=== PATIENT | female | born 1980 | race Caucasian/White ===

== ENCOUNTER 2016-06-04 12:05 | Emergency (ER) | payer BC ==
[2016-06-04] MEDS ORDERED: diphenhydrAMINE 50 MG/ML 1 ML VIAL IVP STA (13:12)
[2016-06-04] MEDS ORDERED: METOCLOPRAMIDE 5 MG/ML 2 ML VIAL IVP STA (13:12)
[2016-06-04] MEDS ORDERED: SODIUM CHLORIDE 0.9% 1,000 ML IV ONE (13:12)
[2016-06-04] MEDS ORDERED: ACETAMINOPHEN IV (For NPO) 1,000 MG in EMPTY BAG 1 BAG IVPB STA (13:13)
--- NOTE | 2016-06-04 13:16 | ED ---
Headache HPI - General Chief Complaint: Headache Stated Complaint: Severe Headache/low grade fever Time Seen by Provider: 06/04/16 13:02 Source: RN notes reviewed Mode of arrival: ambulatory Limitations: no limitations - History of Present Illness Initial Comments: She is a 35-year-old female presenting to the with chief complaint of the sudden onset of a headache this morning. Patient reports that when the headache occurred she was unable to ambulate and her headache was so severe she felt nauseated. Patient reports that she was able to take Motrin after her son was able to walk and get it to her. Patient reports that she's never had a history of migraines or headaches such as this. She also states that for the past 10 days she's been having a low-grade fever. She is reported that she's also had a cough and was given a prescription for azithromycin for the past 5 days. Patient reports that despite taking the antibiotic she is continued to have somewhat of a fever today. She denies any specific symptoms besides the headache and the fever including dysuria or hematuria, abdominal pain, and vomiting, diarrhea constipation. She reports that she has no significant past medical history however she does have a family history of stroke. She reports that her younger sister had a stroke at the age of 34. Patient denies any recent chills, shortness of breath, chest pain, back pain, abdominal pain, vomiting, numbness or tingling, dysuria or hematuria, constipation or diarrhea, headaches or visual changes, or any other current symptoms. - Related Data Home Medications Medication Instructions Recorded Confirmed Ibuprofen [Motrin] 800 mg PO Q6H PRN 06/04/16 06/04/16 methylPREDNISolone Dose Pack See Taper PO DAILY 06/04/16 06/04/16 [Medrol Dose Pack] Allergies Allergy/AdvReac Type Severity Reaction Status Date / Time No Known Allergies Allergy Verified 06/04/16 12:54 Review of Systems ROS Statement: Those systems with pertinent positive or pertinent negative responses have been documented in the HPI. ROS Other: All systems not noted in ROS Statement are negative. Past Medical History Past Medical History: No Reported History History of Any Multi-Drug Resistant Organisms: None Reported Past Surgical History: Appendectomy Additional Past Surgical History / Comment(s): lap Past Psychological History: No Psychological Hx Reported Smoking Status: Never smoker Past Alcohol Use History: Occasional Past Drug Use History: None Reported General Exam - General Exam Comments Initial Comments: Patient is a 35-year-old female. She is alert and oriented and doesn't appear to be in any acute distress at this time. Limitations: no limitations General appearance: alert, in no apparent distress Head exam: Present: atraumatic, normocephalic, normal inspection Eye exam: Present: normal appearance, PERRL, EOMI. Absent: scleral icterus, conjunctival injection, periorbital swelling ENT exam: Present: normal exam, mucous membranes moist Neck exam: Present: normal inspection, full ROM, other (Negative Kernig's and Brudzinski sign.). Absent: tenderness, meningismus, lymphadenopathy Respiratory exam: Present: normal lung sounds bilaterally. Absent: respiratory distress, wheezes, rales, rhonchi, stridor Cardiovascular Exam: Present: regular rate, normal rhythm, normal heart sounds. Absent: systolic murmur, diastolic murmur, rubs, gallop, clicks GI/Abdominal exam: Present: soft, normal bowel sounds, other. Absent: distended , tenderness, guarding, rebound, rigid Extremities exam: Present: normal inspection, full ROM, normal capillary refill. Absent: tenderness, pedal edema, joint swelling, calf tenderness Back exam: Present: normal inspection Neurological exam: Present: alert, oriented X3, CN II-XII intact Expanded Patient oriented to: Present: person, place, time Speech: Present: fluid speech Cranial nerves: EOM's Intact: Normal, Gag Reflex: Normal, Tongue Deviation: Normal Cerebellar function: Finger to Nose: Normal Upper motor neuron: Ismael Neglect: Normal Sensory exam: Upper Extremity Light Touch: Normal, Lower Extremity Light Touch: Normal Motor strength exam: RUE: 5, LUE: 5, RLE: 5, LLE: 5 Eye Response: (4) open spontaneously Motor Response: (6) obeys commands Verbal Response: (5) oriented [place] Total: 15 Psychiatric exam: Present: normal affect, normal mood Skin exam: Present: warm, dry, intact, normal color. Absent: rash Course Vital Signs 06/04/16 06/04/16 12:35 13:37 Temperature 97.7 F Pulse Rate 78 67 Respiratory 18 14 Rate Blood Pressure 152/79 143/83 O2 Sat by Pulse 99 99 Oximetry - Reevaluation(s) Reevaluation #1: 06/04/16 14:45 Patient was reevaluated after migraine cocktail and reports that she is feeling much better at this time. She rates that her pain is currently a 1 out of 10. Medical Decision Making - Medical Decision Making Patient is a 35-year-old female with a chief complaint of a severe headache that occurred today. She does have a family history of stroke which is that she has no neurological deficits at this time. She also reports that she's had a low-grade fever for the past week and she has completed her antibiotic azithromycin for 1 day. Patient denies any cough or chest pain at this time. Initial lab work was reviewed and is found to have a mild leukocytosis of 11.7. Patient has no meningeal signs. CT brain was also completed.Patient's CT of the brain was negative for any acute process. No midline shift or hemorrhaging. Chest x-ray was also revealed to be normal. Patient also has a negative influenza screen. Patient will be diagnosed with a migraine instructed to follow-up with her primary care provider in one to 2 days. Patient understands treatment plan will comply. Return parameters were discussed. - Lab Data Result diagrams: 06/04/16 13:40 06/04/16 13:40 Lab Results 06/04/16 06/04/16 06/04/16 Range/Units 13:40 13:40 13:40 WBC 11.7 H (3.8-10.6) k/uL RBC 5.37 (3.80-5.40) m/uL Hgb 14.9 (11.4-16.0) gm/dL Hct 43.9 (34.0-46.0) % MCV 81.8 (80.0-100.0) fL MCH 27.7 (25.0-35.0) pg MCHC 33.9 (31.0-37.0) g/dL RDW 12.5 (11.5-15.5) % Plt Count 350 (150-450) k/uL Neutrophils % 64 % Lymphocytes % 25 % Monocytes % 8 % Eosinophils % 1 % Basophils % 1 % Neutrophils # 7.4 (1.3-7.7) k/uL Lymphocytes # 2.9 (1.0-4.8) k/uL Monocytes # 0.9 (0-1.0) k/uL Eosinophils # 0.1 (0-0.7) k/uL Basophils # 0.1 (0-0.2) k/uL Sodium 147 H (137-145) mmol/L Potassium 4.0 (3.5-5.1) mmol/L Chloride 110 H (98-107) mmol/L Carbon Dioxide 23 (22-30) mmol/L Anion Gap 14 mmol/L BUN 10 (7-17) mg/dL Creatinine 0.61 (0.52-1.04) mg/dL Est GFR (MDRD) Af Amer >60 (>60 ml/min/1.73 sqM) Est GFR (MDRD) Non-Af >60 (>60 ml/min/1.73 sqM) Glucose 80 (74-99) mg/dL Calcium 9.8 (8.4-10.2) mg/dL Influenza Type A RNA Not Detected (Not Detectd) Influenza Type B (PCR) Not Detected (Not Detectd) - Radiology Data Radiology results: report reviewed CT brain was negative for any acute process. Chest x-ray is also negative for acute process. Disposition Clinical Impression: Migraine Disposition: HOME SELF-CARE Condition: Good Instructions: Migraine Headache (ED) Additional Instructions: Patient instructed to follow up with primary care provider and 1-2 days. Return to the [facility] if any alarming signs or symptoms occur. Patient started to use Motrin Tylenol for headaches. Rest, remain hydrated, and follow up to PCP. Referrals: Keo Jackson DO [Primary Care Provider] - 1-2 days Time of Disposition: 14:43
[2016-06-04 13:40] VITALS: PULSE 67
[2016-06-04 13:58] LABS: Basophils # (A) 0.1 k/uL (0-0.2); Basophils % (A) 1 %; CHCM 35.6; Eosinophils # (A) 0.1 k/uL (0-0.7); Eosinophils % (A) 1 %; HCT 43.9 % (34.0-46.0); HDW 2.76; HGB 14.9 gm/dL (11.4-16.0); Luc # (Auto) 0.25; Luc % (Auto) 2; Lymphocytes # (A) 2.9 k/uL (1.0-4.8); Lymphocytes % (A) 25 %; MCH 27.7 pg (25.0-35.0); MCHC 33.9 g/dL (31.0-37.0); MCV 81.8 fL (80.0-100.0); Monocytes # (A) 0.9 k/uL (0-1.0); Monocytes % (A) 8 %; Neutrophils # (A) 7.4 k/uL (1.3-7.7); Neutrophils % (A) 64 %; RBC 5.37 m/uL (3.80-5.40); RDW 12.5 % (11.5-15.5); WBC 11.7 k/uL (3.8-10.6); WBC (Perox) 12.03
--- NOTE | 2016-06-04 14:11 | XR ---
EXAMINATION TYPE: XR chest 2V DATE OF EXAM: 06/04/2016 2:06 PM COMPARISON: EXAMINATION TYPE: XR chest 2V DATE OF EXAM: 06/04/2016 2:06 PM COMPARISON: NONE HISTORY: Cough and congestion TECHNIQUE: Frontal and lateral views of the chest are obtained. FINDINGS: Heart and mediastinum are normal. Lungs are clear. Diaphragm is normal. Bony thorax is int act. IMPRESSION: Normal chest
--- NOTE | 2016-06-04 14:12 | CT ---
EXAMINATION TYPE: CT brain wo con DATE OF EXAM: 06/04/2016 1:59 PM COMPARISON: NONE HISTORY: headache with nausea and vomiting CT DLP: 995.5 mGycm Automated exposure control for dose reduction was used. FINDINGS: There is no acute intracranial hemorrhage, mass effect, or midline shift identified. The ventricles and sulci are within normal limits in size. The globes are intact and the visualized sinuses are catie ar. IMPRESSION: No acute intracranial hemorrhage, mass effect, or midline shift is seen.
[2016-06-04 14:19] LABS: Anion Gap 14 mmol/L; Blood Urea Nitrogen 10 mg/dL (7-17); Carbon Dioxide 23 mmol/L (22-30); Chloride 110 mmol/L (98-107); Glucose 80 mg/dL (74-99); Sodium 147 mmol/L (137-145)
[2016-06-04 14:20] LABS: Calcium 9.8 mg/dL (8.4-10.2); Non-African American GFR(MDRD) >60 (>60 ml/min/1.73 sqM)
[2016-06-04] MEDS ORDERED: ONDANSETRON 4 MG ODT STARTER PACK 2 TAB BTL PO STA (14:49)
[2016-06-04 15:00] VITALS: BP 122/73; RESP 16; TEMP 98
== END 2016-06-04 15:11 | disposition home or self-care (01) ==
LOC: EC 12:05
DX: G43.909 Migraine, unspecified, not intractable, without status migrainosus (principal); R50.9 Fever, unspecified; Z82.3 Family history of stroke; D72.829 Elevated white blood cell count, unspecified
CPT/HCPCS: 99284; 96374; 96375; 36415; 80048; 85025; 87502; 71020; 70450; 96361; J1200; J2765; J0131; S0119

== ENCOUNTER → 2016-06-10 | Outpatient (CLI) | payer BC ==
--- NOTE | 2016-06-10 10:52 | US ---
EXAMINATION TYPE: US transvaginal DATE OF EXAM: 06/10/2016 10:05 AM COMPARISON: CT abdomen and pelvis March 15, 2010 CLINICAL HISTORY: Pelvic Pain R10.2. History of ovarian cysts TECHNIQUE: Transvaginal (TV) pelvic ultrasound. Date of LMP: 05/27/16 EXAM MEASUREMENTS: Uterus: 9.7 x 4.6 x 5.6 cm Endometrial Stripe: 1.3 cm Right Ovary: 3.2 x 1.8 x 1.9 cm Left Ovary: 2.5 x 2.6 x 3.6 cm TECHNOLOGIST IMPRESSION: 1. Uterus: Anteverted heterogeneous in appearance 2. Endometrium: appears wnl 3. Right Ovary: follicles noted 4. Left Ovary: cystic area = 2.3 x 1.5 x 1.8cm 5. Bilateral Adnexa: wnl 6. Posterior cul-de-sac: wnl There is 2.3 cm dominant follicle or simple appearing cyst in left ovary marked by technologist. IMPRESSION: No significant finding is seen to account for patient's symptoms.
== END | disposition home or self-care (01) ==
LOC: RADUSWWP 09:44
PROVIDERS: ATTEND Obstetrics & Gynecology
DX: R10.2 Pelvic and perineal pain (principal)
CPT/HCPCS: 76830

== ENCOUNTER → 2018-04-24 | Outpatient (CLI) | payer BC ==
--- NOTE | 2018-04-25 12:56 | ECHOF ---
Referral Reason:R07.89 chest pain, I10 Hypertension MEASUREMENTS -------- HEIGHT: 165.1 cm WEIGHT: 72.6 kg BP: RVIDd: 3.0 cm (< 3.3) IVSd: 1.0 cm (0.6 - 1.1) LVIDd: 4.6 cm (3.9 - 5.3) LVPWd: 1.0 cm (0.6 - 1.1) IVSs: 1.2 cm LVIDs: 3.1 cm LVPWs: 1.4 cm LAESV Index (A-L): 20.11 ml/m Ao Diam: 3.2 cm (2.0 - 3.7) AV Cusp: 2.2 cm (1.5 - 2.6) LA Diam: 3.1 cm (2.7 - 3.8) MV EXCURSION: 12.039 mm (> 18.000) MV EF SLOPE: 57 mm/s (70 - 150) EPSS: 0.7 cm MV E Seferino: 0.86 m/s MV DecT: 243 ms MV A Seferino: 0.76 m/s MV E/A Ratio: 1.14 RAP: 5.00 mmHg RVSP: 16.22 mmHg FINDINGS -------- Sinus rhythm. This was a technically adequate study. LV size, wall thickness and systolic function are normal, with an EF greater than 55%. The left rosita tricular size is normal. The right ventricle is normal in size. The left atrial size is normal. The right atrial size is normal. The aortic valve is trileaflet, and appears structurally normal. No aortic stenosis or regurgitation. Mild mitral annular calcification present. Mild mitral regurgitation is present. Mild tricuspid regurgitation present. There is no evidence of pulmonary hypertension. The right v entricular systolic pressure, as measured by Doppler, is 16.22mmHg. There is no pulmonic regurgitation present. The aortic root size is normal. There is no pericardial effusion. CONCLUSIONS -------- 1. LV size, wall thickness and systolic function are normal, with an EF greater than 55%. 2. The left ventricular size is normal. 3. The right ventricle is normal in size. 4. The left atrial size is normal. 5. The right atrial size is normal. 6. The aortic valve is trileaflet, and appears structurally normal. No aortic stenosis or regurgitati on. 7. Mild mitral annular calcification present. 8. Mild mitral regurgitation is present. 9. Mild tricuspid regurgitation present. 10. There is no evidence of pulmonary hypertension. 11. The right ventricular systolic pressure, as measured by Doppler, is 16.22mmHg. 12. There is no pulmonic regurgitation present. 13. The aortic root size is normal. 14. There is no pericardial effusion. ROUND KILN DRAWER: Margaret White RDCS
== END | disposition home or self-care (01) ==
LOC: RADECHMAIN 15:20
PROVIDERS: ATTEND Family Medicine
DX: I08.1 Rheumatic disorders of both mitral and tricuspid valves (principal); I10 Essential (primary) hypertension
CPT/HCPCS: 93306

== ENCOUNTER → 2018-04-25 | Outpatient (CLI) | payer BC ==
--- NOTE | 2018-04-27 11:08 | EST ---
EXERCISE STRESS DATE OF SERVICE: 04/25/2018 AGE: 37 SEX: Female HT: 5'5" WT: 160 PROTOCOL: Parag STAGE: III DURATION OF EXERCISE: 10 minutes HEART RATE REST: 84 BLOOD PRESSURE REST: 136/88 MAXIMUM HEART RATE ACHIEVED: 145 MAXIMUM BLOOD PRESSURE: 166/94 85% MPHR: 154 100% MPHR: 181 METS: 11.7 INDICATIONS: Chest pain. CLINICAL INFORMATION: The patient was exercised for a total period of 10 minutes. A peak heart rate of 145 was achieved. Maximum blood pressure 166/94 mmHg was noted. Resting EKG shows normal sinus rhythm with normal [place] interval and QRS duration and normal ST-T waves. No ST- segment depression suggestive of ischemia is noted. Occasional PVCs are noted. FINAL IMPRESSION: 1. This exercise test is not suggestive of ischemia. 2. Patient's exercise tolerance is normal. 3. Occasional PACs and PVCs were noted. MMODL / IJN: [id number] /
== END | disposition home or self-care (01) ==
LOC: RADNMMAIN 08:35
PROVIDERS: ATTEND Family Medicine
DX: R07.89 Other chest pain (principal); I10 Essential (primary) hypertension
CPT/HCPCS: 93017

== ENCOUNTER → 2019-04-03 | Outpatient (CLI) | payer BC ==
--- NOTE | 2019-04-05 11:43 | MM ---
Reason for exam: screening (asymptomatic). Last mammogram was performed 3 years and 4 months ago. History: Family history of breast cancer in paternal aunt at age 40. Took hormonal contraceptives for 10 years. Physical Findings: A clinical breast exam by your physician is recommended on an annual basis and results should be correlated with mammographic findings. MG 3D Screening Mammo W/Cad Bilateral CC and MLO view(s) were taken. Prior study comparison: November 25, 2015, bilateral MG 3d diag mammo w/cad REESE. The breast tissue is heterogeneously dense. This may lower the sensitivity of mammography. Finding: There are indeterminate microcalcifications in the upper outer quadrant of the left breast. ASSESSMENT: Incomplete: need additional imaging evaluation, BI-RAD 0 RECOMMENDATION: Special view mammogram of the left breast. If lesion persists on supplemental views, image directed ultrasound is recommended. [facility] will attempt to contact patient to return for supplemental views and ultrasound if indicated.
== END | disposition home or self-care (01) ==
LOC: RADMAMWWP 13:00
PROVIDERS: ATTEND Obstetrics & Gynecology
DX: Z12.31 Encounter for screening mammogram for malignant neoplasm of breast (principal)
CPT/HCPCS: 77063; 77067

== ENCOUNTER → 2019-04-09 | Outpatient (CLI) | payer BC ==
--- NOTE | 2019-04-09 10:38 | MM ---
Reason for exam: additional evaluation requested from abnormal screening. Last mammogram was performed less than 1 month ago. History: Family history of breast cancer in paternal aunt at age 40. Took hormonal contraceptives for 10 years. Physical Findings: Nurse did not find any significant physical abnormalities on exam. MG 3D Work Up W/Cad LT CC with magnification and LM view(s) were taken of the left breast. Prior study comparison: April 03, 2019, bilateral MG 3d screening mammo w/cad. November 25, 2015, bilateral MG 3d diag mammo w/cad REESE. Finding: There are typically benign round, regional and grouped calcifications in the upper outer quadrant of the left breast, several levels. These results were verbally communicated with the patient and result sheet given to the patient on 04/09/19. ASSESSMENT: Probably benign, BI-RAD 3 RECOMMENDATION: Follow-up diagnostic mammogram of the left breast in 6 months.
== END | disposition home or self-care (01) ==
LOC: RADMAMWWP 08:55
PROVIDERS: ATTEND Obstetrics & Gynecology
DX: R92.8 Other abnormal and inconclusive findings on diagnostic imaging of breast (principal)
CPT/HCPCS: 77061; 77065

== ENCOUNTER 2020-01-19 18:49 | Emergency (ER) | payer BC ==
[2020-01-19] MEDS ORDERED: SODIUM CHLORIDE 0.9% 500 ML 500 ML IV ONE (19:01)
[2020-01-19 19:30] LABS: Basophils # (A) 0.1 k/uL (0-0.2); Basophils % (A) 1 %; Eosinophils # (A) 0.1 k/uL (0-0.7); Eosinophils % (A) 1 %; HCT 45.4 % (34.0-46.0); HGB 15.1 gm/dL (11.4-16.0); Lymphocytes # (A) 2.5 k/uL (1.0-4.8); Lymphocytes % (A) 26 %; MCHC 33.2 g/dL (31.0-37.0); MCV 84.2 fL (80.0-100.0); Mean Platelet Volume 6.8; Monocytes # (A) 0.7 k/uL (0-1.0); Monocytes % (A) 7 %; Neutrophils # (A) 6.2 k/uL (1.3-7.7); Neutrophils % (A) 64 %; Platelet Count 340 k/uL (150-450); RBC 5.39 m/uL (3.80-5.40); RDW 12.9 % (11.5-15.5); WBC 9.7 k/uL (3.8-10.6)
[2020-01-19 19:39] LABS: ALT 19 U/L (4-34); AST 20 U/L (14-36); African American GFR (CKD) >90 (>60 ml/min/1.73 sqM); Albumin 4.6 g/dL (3.5-5.0); Alkaline Phosphatase 67 U/L (38-126); Anion Gap 9 mmol/L; Blood Urea Nitrogen 10 mg/dL (7-17); Calcium 9.9 mg/dL (8.4-10.2); Carbon Dioxide 22 mmol/L (22-30); Chloride 111 mmol/L (98-107); Glucose 98 mg/dL (74-99); Non-African American GFR(CKD) >90 (>60 ml/min/1.73 sqM); Potassium 3.4 mmol/L (3.5-5.1); Sodium 142 mmol/L (137-145); Total Bilirubin 0.4 mg/dL (0.2-1.3); Total Protein 7.2 g/dL (6.3-8.2)
--- NOTE | 2020-01-19 20:36 | US ---
EXAMINATION TYPE: US transvaginal DATE OF EXAM: 01/19/2020 COMPARISON: NONE CLINICAL HISTORY: bleeding right sided pelvic pain. h/o ovarian cysts, right sided pelvic pain for a few days and patient noticed blood after wiping TECHNIQUE: TV. Transvaginal sonographic images Date of LMP: 01/05/2020 EXAM MEASUREMENTS: Uterus: 10.2 x 4.5 x 5.1 cm Endometrial Stripe: 0.6 cm Right Ovary: 1.8 x 2.1 x 1.5 cm Left Ovary: 1.9 x 1.1 x 1.3 cm 1. Uterus: Anteverted wnl 2. Endometrium: wnl 3. Right Ovary: multiple follicles seen under 1cm 4. Left Ovary: wnl Spectral, color and waveform doppler imaging shows good arterial and venous flow within the ovaries ; there is no evidence for ovarian torsion. 5. Bilateral Adnexa: wnl 6. Posterior cul-de-sac: wnl IMPRESSION: Negative exam. No evidence of ovarian torsion.
--- NOTE | 2020-01-19 20:43 | ED ---
Female Urogenital HPI - General Chief complaint: Vaginal Bleeding Stated complaint: Ovarian cyst burst, vaginal bleeding Time Seen by Provider: 01/19/20 19:01 Source: patient Mode of arrival: ambulatory Limitations: no limitations - History of Present Illness Initial comments: 39-year-old female presenting to the emergency room today for chief complaint of on and off vaginal bleeding or pelvic cramping. Patient states Monday should send onset of lower pelvic pain she states is sharp she states it subsided and she had a dull aching for the remainder of the weekend. She states this gone away almost completely now she states is a dull ache. She states it is right- sided more than left she has history of previous appendectomy denies fevers diarrhea vomiting. He states it feels like it is in the area when she's had issues of pain from her cyst in the past. Patient states that she was concerned when she had some light vaginal bleeding she states is less than a period of very sporadic. She states usually is very regular periods so this is unusual for her. Patient denies any headedness dizziness chest pain shortness breath or additional complaints she denies patient appears well and nontoxic on arrival - Related Data Home Medications Medication Instructions Recorded Confirmed Ibuprofen [Motrin] 800 mg PO Q6H PRN 06/04/16 06/04/16 methylPREDNISolone Dose Pack See Taper PO DAILY 06/04/16 06/04/16 [Medrol Dose Pack] Allergies Allergy/AdvReac Type Severity Reaction Status Date / Time No Known Allergies Allergy Verified 01/19/20 18:53 Review of Systems ROS Statement: Those systems with pertinent positive or pertinent negative responses have been documented in the HPI. ROS Other: All systems not noted in ROS Statement are negative. Past Medical History Past Medical History: No Reported History Additional Past Medical History / Comment(s): ovarian cysts History of Any Multi-Drug Resistant Organisms: None Reported Past Surgical History: Appendectomy Additional Past Surgical History / Comment(s): lap Past Psychological History: No Psychological Hx Reported Smoking Status: Never smoker Past Alcohol Use History: Occasional Past Drug Use History: None Reported General Exam - General Exam Comments Initial Comments: General: The patient is awake and alert, in no distress, and does not appear acutely ill. Eye: Pupils are equal, round and reactive to light, extra-ocular movements are intact. No nystagmus. There is normal conjunctiva bilaterally. No signs of icterus. Gastrointestinal: Soft, non-distended, non-tender abdomen without masses or organomegaly noted. There is no rebound or guarding present. : cervix positioned to the right, there is some redness around os, brown blood scant in vault, small amount, no odors. no cervical motion or adnexal tenderness. Musculoskeletal: Normal ROM, no tenderness. Strength 5/5. Sensation intact. Pulses equal bilaterally 2+. Neurological: A&O x 3. CN II-XII intact grossly, There are no obvious motor or sensory deficits. Coordination appears grossly intact. Speech is normal. Skin: Skin is warm and dry and no rashes or lesions are noted. Psychiatric: Cooperative, appropriate mood & affect, normal judgment. Limitations: no limitations Course Vital Signs 01/19/20 01/19/20 18:53 21:21 Temperature 98.3 F 98.2 F Pulse Rate 82 81 Respiratory 18 16 Rate Blood Pressure 163/82 160/81 O2 Sat by Pulse 99 98 Oximetry Medical Decision Making - Medical Decision Making Hgb Stable. very minimal old appearing blood. no significant pain. US (-). {atient VS stable. No RLQ abdominal tenderness appears pelvic in nature, hx of cysts. She has established [facility] care with recent Pap smear 2 weeks ago PATIENT follow up with Dr. Malone for dysfunctional uterine bleeding patient is agreeable to this care plan discharge at this time - Lab Data Result diagrams: 01/19/20 19:18 01/19/20 19:18 Lab Results 01/19/20 01/19/20 01/19/20 Range/Units 19:18 19:18 19:18 WBC 9.7 (3.8-10.6) k/uL RBC 5.39 (3.80-5.40) m/uL Hgb 15.1 (11.4-16.0) gm/dL Hct 45.4 (34.0-46.0) % MCV 84.2 (80.0-100.0) fL MCH 28.0 (25.0-35.0) pg MCHC 33.2 (31.0-37.0) g/dL RDW 12.9 (11.5-15.5) % Plt Count 340 (150-450) k/uL Neutrophils % 64 % Lymphocytes % 26 % Monocytes % 7 % Eosinophils % 1 % Basophils % 1 % Neutrophils # 6.2 (1.3-7.7) k/uL Lymphocytes # 2.5 (1.0-4.8) k/uL Monocytes # 0.7 (0-1.0) k/uL Eosinophils # 0.1 (0-0.7) k/uL Basophils # 0.1 (0-0.2) k/uL Sodium 142 (137-145) mmol/L Potassium 3.4 L (3.5-5.1) mmol/L Chloride 111 H (98-107) mmol/L Carbon Dioxide 22 (22-30) mmol/L Anion Gap 9 mmol/L BUN 10 (7-17) mg/dL Creatinine 0.76 (0.52-1.04) mg/dL Est GFR (CKD-EPI)AfAm >90 (>60 ml/min/1.73 sqM) Est GFR (CKD-EPI)NonAf >90 (>60 ml/min/1.73 sqM) Glucose 98 (74-99) mg/dL Calcium 9.9 (8.4-10.2) mg/dL Total Bilirubin 0.4 (0.2-1.3) mg/dL AST 20 (14-36) U/L ALT 19 (4-34) U/L Alkaline Phosphatase 67 (38-126) U/L Total Protein 7.2 (6.3-8.2) g/dL Albumin 4.6 (3.5-5.0) g/dL Urine HCG, Qual Not Detected (Not Detectd) Disposition Clinical Impression: Vaginal bleeding, Pelvic pain Disposition: HOME SELF-CARE Condition: Good Instructions (If sedation given, give patient instructions): Dysfunctional Uterine Bleeding (ED) Additional Instructions: Please use medication as discussed. Please follow-up with OBGYN in the next 2 days.. Please return to emergency room if the symptoms increase or worsen or for any other concerns. Is patient prescribed a controlled substance at d/c from ED?: No Referrals: Keo Jackson DO [Primary Care Provider] - 1-2 days Time of Disposition: 20:43
[2020-01-19 21:22] VITALS: BP 160/81; PULSE 81; RESP 16; TEMP 98.2
== END 2020-01-19 21:20 | disposition home or self-care (01) ==
LOC: EC 18:49
DX: N93.9 Abnormal uterine and vaginal bleeding, unspecified (principal); R10.2 Pelvic and perineal pain
CPT/HCPCS: 36415; 76830; 80053; 81025; 85025; 93975; 96360; 99284

== ENCOUNTER → 2020-02-10 | Outpatient (CLI) | payer BC ==
--- NOTE | 2020-02-10 12:06 | MM ---
Reason for exam: follow-up at short interval from prior study. Last mammogram was performed 10 months ago. History: Family history of breast cancer in paternal aunt at age 40. Took hormonal contraceptives for 10 years. Physical Findings: Nurse did not find any significant physical abnormalities on exam. MG 3D Diag Mammo W/Cad LT Spot compression CC and spot compression MLO view(s) were taken of the left breast. Prior study comparison: April 09, 2019, left breast MG 3d work up w/cad LT. April 03, 2019, bilateral MG 3d screening mammo w/cad. The breast tissue is heterogeneously dense. This may lower the sensitivity of mammography. Finding: There are grouped/clustered calcifications in the upper outer quadrant of the left breast. These results were verbally communicated with the patient and result sheet given to the patient on 02/10/20. ASSESSMENT: Suspicious, BI-RAD 4 RECOMMENDATION: Stereotactic core biopsy of the left breast. Called Dr. Malone's office with mammographic findings and has scheduled an appointment for the patient for 03/12/20 at 10:[address] Hope. Biopsy scheduled for 02/13/20 at 10:00. PRELIMINARY REPORT CALLED AND FAXED TO DR. HOPE ON 02/10/20.
== END | disposition home or self-care (01) ==
LOC: RADMAMWWP 08:26
PROVIDERS: ATTEND Obstetrics & Gynecology
DX: R92.8 Other abnormal and inconclusive findings on diagnostic imaging of breast (principal)
CPT/HCPCS: 77061; 77065

== ENCOUNTER → 2020-02-13 | Day surgery (SDC) | payer BC ==
[2020-02-13 09:42] VITALS: RESP 16
[2020-02-13 12:11] VITALS: BP 121/82; PULSE 76; TEMP 98.4
--- NOTE | 2020-02-13 18:15 | MM ---
EXAMINATION TYPE: MG stereo VAD BX LT DATE OF EXAM: 02/13/2020 COMPARISON: NONE CLINICAL HISTORY: Abnormal mammogram TECHNIQUE: Stereotactic guided core biopsy of left breast. FINDINGS: Images are reviewed. The upper left breast calcifications are identified for targeting. Evaluation of the images identifies a second group of calcifications that were felt to be suspicious. Neither group of calcifications was felt to be more suspicious than the other. Report was called to Dr. Hope, these left breast middle calcifications will also be biopsied at this time. The procedure of stereotactic guided core biopsy was explained to the patient. Benefits, alternatives, and risks were discussed. Risk for bleeding was discussed especially given the close proximity of vascular structures for the upper biopsy site. Discussions regarding 2 biopsy sites was performed. Prior to the second biopsy site given the difficulty in localization, which was initially attempted for targeting prior to the upper biopsy, the additional possibility of not acquiring the expected calcifications was discussed. An informed consent was then obtained. Images were evaluated. Lateral approaches were chosen. The upper biopsy site was targeted by radiology. The procedure was performed by radiology. The area was anesthetized with 1% lidocaine. Deeper breast tissue was anesthetized with 1% lidocaine with epinephrine. Patient had some pain with the second biopsy and additional lidocaine was placed for anesthetization. Subsequent biopsies were without pain. A total of 6 core samples were obtained. Marker was placed at the biopsy site. Sample upper left breast: Sample contains calcifications. Sample was labeled for transferred to pathology. A second calcification site was localized. The calcifications appear to be in the proper orientation in relation to the previous biopsy. Pre and post fire imaging was performed. Calcifications appear to be present at the vacuum device opening. 6 core samples were obtained obtained. There may be questionable punctate calcification in this region, 6 additional core samples were then obtained. One additional calcification potentially may be present. Marker was placed at this biopsy site for comparison to the presurgical images to evaluate the targeted area. Middle left breast sample: Couple of faint calcifications potentially may be present. Given the questionable nature, additional sampling was obtained with no additional calcifications identified. Some calcification may be present on the digital images when reviewed after the biopsy. Comparison will be made with the prebiopsy calcifications following mammography. The patient tolerated the procedure well without any immediate complication. Post biopsy mammogram: The upper left breast marker is at the expected location of the prior calcifications. The second middle breast biopsy marker appears more superior and lateral than expected. The second group of calcifications do not appear to be sampled during this exam. IMPRESSION: 1. Successful core biopsy upper left breast. 2. Unsuccessful biopsy left middle breast. Recommendations: 1. Final recommendations are pending pathology results. 2. Evaluation of the second group of calcifications within the left middle breast recommended in regards to patient management. Pathology Results: High Risk A. LEFT BREAST, SITE 1 SUPERIOR, STEREOTACTIC CORE BIOPSY: Fibrocystic changes including columnar cell change/columnar cell hyperplasia and sclerosing adenosis with calcifications. B. LEFT BREAST, SITE 2 MIDDLE, STEREOTACTIC CORE BIOPSY: Focal atypical lobular hyperplasia and background fibrocystic changes including fibrosis, cysts, sclerosing adenosis, columnar cell change and rare microcalcifications. Recommendation Surgical consult of the left breast. [facility]
== END ==
LOC: RADMAMWWP 08:54
PROVIDERS: ATTEND Surgery
DX: N60.22 Fibroadenosis of left breast (principal); N60.32 Fibrosclerosis of left breast
CPT/HCPCS: 88305; 19081; 19082; A4648; J2001

== ENCOUNTER → 2020-03-27 | Outpatient (CLI) | payer BC ==
--- NOTE | 2020-04-01 06:51 | BMR ---
EXAMINATION TYPE: MR breast BILAT wo/w con DATE OF EXAM: 03/27/2020 COMPARISON: 3-D bilateral breast mammogram April 03, 2019 BI-RADS 0. Diagnostic left breast mammog wan April 09, 2019 BI-RADS 3. 3-D left breast mammogram February 10, 2020 BI-RADS 4 HISTORY: High risk breast lesion, left side stereotactic biopsy February 13, 2020 focal atypical lobula r hyperplasia, abnormal prior study. TECHNIQUE: A series of fat and water weighted images in the long and short axis views of both breasts are obtained in conjunction with dynamic contrast MRI with subtraction technique. The patient was i njected with 7 mL intravenous Gadavist gadolinium contrast. Three-dimensional and additional postpr ocessing imaging is created on independent workstation and reviewed during official interpretation of this study. FINDINGS: Heterogeneously dense fibroglandular tissue is redemonstrated bilaterally. There are multip le thin-walled cysts throughout the bilateral breasts all measuring subcentimeter in size of differen t shape. T1-weighted images show no fat-containing masses. No suspicious axillary adenopathy is noted bilaterally. Dynamic postcontrast imaging shows severe symmetric background enhancement making evalu ation suboptimal. Areas of nodular enhancement throughout glandular tissue is noted bilaterally. Miriam yed dynamic imaging shows no suspicious intramammary adenopathy bilaterally. With regards to the right breast. No suspicious skin thickening is seen. No pathologic enhancement or enhancing mass is clearly identified. Chest wall is intact. With regards to the left breast, there is artifact from biopsy clip in the middle depth upper positio n 12:00 position seen best image 75 series 601. No pathologic enhancement or enhancing masses identif ied. No suspicious skin thickening. The chest wall is intact. IMPRESSION: Suboptimal due to severe background enhancement bilaterally. No MRI evidence for invasive malignancy in either breast. BI-RADS 2 benign findings right breast. BI-RADS 2 benign findings left breast. Recommendation: Surgical consultation for focal atypical lobular hyperplasia on biopsy left breast. S ome consider excision. Imaging monitoring may also be performed.
== END | disposition home or self-care (01) ==
LOC: RADMRIMAIN 14:10
PROVIDERS: ATTEND Surgery
DX: R92.8 Other abnormal and inconclusive findings on diagnostic imaging of breast (principal); N64.59 Other signs and symptoms in breast
CPT/HCPCS: 77049; C8937; A9585

== ENCOUNTER 2020-04-13 07:50 | Day surgery (SDC) | payer BC ==
[2020-04-09 12:34] VITALS: BMI 25.0
[~2020-04-13 07:50] MED LIST: ACETAMINOPHEN TAB 500 MG TAB PO PRN; DEXAMETHASONE SOD PHOSPHATE 4 MG/ML 1 ML VIAL IV ONE; HEPARIN SODIUM,PORCINE 5,000 UNIT/ML 1 ML VIAL SQ PRN; LACTATED RINGERS 1,000 ML IV SCH; LIDOCAINE 1% (10MG/ML) FOR IV START INTRADERMA PRN; MIDAZOLAM 2 MG/2 ML VIAL IV PRN; Pre Op ABX Message 1 EACH MISC MISCELLANE ONE
[2020-04-13] MEDS ORDERED: ALPRAZolam 0.5 MG TAB ONE (08:17)
[2020-04-13] MEDS: ONDANSETRON 4 MG/2 ML VIAL IVP ONE ×2 (08:37→15:15)
--- NOTE | 2020-04-13 08:56 | P.GSHP ---
History of Present Illness H&P Date: 04/13/20 Chief Complaint: abnormal left mammogram 39-year-old female seen in our office recently. Patient had 2 areas left breast showing microcalcifications that were suspicious. Successful biopsy of the superior calcifications resulted in benign findings. The dental position calcs were not successfully biopsied. Incidentally she was found to have an area of atypical lobular hyperplasia at the location where the middle position biopsy took place. She is here today for wire localization of both the middle position calcifications and the recent biopsy site showing atypical lobular hyperplasia. Otherwise has no new complaints. Refer to recent history and physical from Michael mata for details. Past Medical History Past Medical History: GERD/Reflux Additional Past Medical History / Comment(s): ovarian cysts, hiatal hernia History of Any Multi-Drug Resistant Organisms: None Reported Past Surgical History: Appendectomy Additional Past Surgical History / Comment(s): laproscopy, LAPOROTOMY, LT BREAST CORE BX Past Anesthesia/Blood Transfusion Reactions: No Reported Reaction Smoking Status: Never smoker - Past Family History Mother Family Medical History: No Reported History Medications and Allergies Home Medications Medication Instructions Recorded Confirmed Type No Known Home Medications 02/11/20 04/13/20 History Allergies Allergy/AdvReac Type Severity Reaction Status Date / Time No Known Allergies Allergy Verified 04/13/20 08:11 Surgical - Exam Vital Signs Temp Pulse Resp BP Pulse Ox 97.7 F 83 17 137/87 100 04/13/20 08:21 04/13/20 08:21 04/13/20 08:21 04/13/20 08:21 04/13/20 08:21 Physical exam: General: Well-developed, well-nourished HEENT: Normocephalic, sclerae nonicteric Right breast: No masses, no adenopathy Left breast: No masses, no adenopathy Abdomen: Nontender, nondistended Extremities: No edema Neuro: Alert and oriented Assessment and Plan (1) Abnormality of left breast on screening mammogram Narrative/Plan: Will proceed with left breast wire localization biopsy 2 sites. Risks of blee ding, infection, inability to localize or remove intended location, scarring, dimpling, pain, numbness, possible need for further surgery reviewed. She understands and wishes to proceed. Case was discussed with radiology this morning. Current Visit: Yes Status: Acute Code(s): R92.8 - OTH ABN AND INCONCLUSIVE FINDINGS ON DX IMAGING OF BREAST SNOMED Code(s): 783735729
[2020-04-13] MEDS ORDERED: LIDOCAINE 1% INJ 10MG/ML (20 ML MDV) SQ ONE ×2 (09:32)
--- NOTE | 2020-04-13 10:54 | P.PN ---
Progress Note - Text Progress Note Date: 04/13/20 [facility] after wire localization. Films were reviewed. Clip where atypical lobular hyperplasia was identified is quite a distance from the wire placement. Patient will be taken back down for second wire placement. This was discussed with both the patient her and the radiologist.
[2020-04-13] MEDS ORDERED: HYDROmorphone (PF) 1 MG/ML ONE (13:14)
[2020-04-13] MEDS ORDERED: KETOROLAC 15 MG/ML 1 ML VIAL ONE (13:14)
[2020-04-13] MEDS ORDERED: PROPOFOL 10 MG/ML 20 ML VIAL IV ONE (13:14)
[2020-04-13] MEDS ORDERED: MIDAZOLAM 2 MG/2 ML VIAL ONE (13:14)
[2020-04-13] MEDS ORDERED: fentaNYL (PF) 50 MCG/ML 2 ML AMP ONE (13:14)
[2020-04-13] MEDS ORDERED: LIDOCAINE 1% INJ 10MG/ML (20 ML MDV) ONE (13:14)
[2020-04-13] MEDS ORDERED: BUPIVACAINE (PF) 0.25% 30 ML VIAL SQ ONE ×4 (13:18→14:22)
[2020-04-13] MEDS ORDERED: SODIUM CHLORIDE 0.9% 50 ML with ceFAZolin 2,000 MG IV ONE ×2 (13:30)
[2020-04-13] MEDS ORDERED: traMADol 50 MG TAB PO PRN (14:28)
[2020-04-13] MEDS ORDERED: NALOXONE 0.4 MG/ML 1 ML VIAL IV PRN (14:28)
--- NOTE | 2020-04-13 14:33 | P.OP ---
Date of Procedure: 04/13/20 Procedure(s) Performed: PREOPERATIVE DIAGNOSIS: Abnormal left mammogram POSTOPERATIVE DIAGNOSIS: Same PROCEDURE: Left Breast wire localization biopsy 2 sites SURGEON: Jayy EBL: 15 mL ANESTHESIA: Sedation plus local COMPLICATIONS: None OPERATIVE PROCEDURE: Patient was placed on the operating room table in the supine position. The patient's breast was prepped and draped in usual sterile fashion. The patient had wires present at the 1:00 location directed inferiorly and posteriorly as well as 2 wires entering the breast at the 4:00 location directed medially. The 4:00 location was first addressed. The longer wire was the one that was followed into the breast tissue and once we reached the thicker portion of the wire a 3 x 3 cm specimen was removed around the wire. This was sent for specimen radiograph which showed calcifications consistent with what was seen mammographically. The 1:00 wire was then addressed. A small curvilinear incision was again made. The breast tissue around the thicker aspect of the wire was again excised in a similar fashion. Slightly smaller specimen measuring 2 x 2 cm. Radiograph confirmed the clip to be present. Both sites were inspected. No bleeding was seen. The subcutaneous tissues were closed using 3-0 Vicryl sutures. The skin was closed using running 4-0 Monocryl sutures. Skin glue and sterile dressings were applied. DISPOSITION: Stable to recovery room
[2020-04-13 14:37] VITALS: TEMP 97.3
--- NOTE | 2020-04-13 15:04 | MM ---
EXAMINATION TYPE: MG pre op needle loc LT, MG surgical specimen LT, MG surgical specimen LT, MG pre op needle loc LT DATE OF EXAM: 04/13/2020 COMPARISON: Recent biopsy February 13, 2020 and older mammograms. CLINICAL HISTORY: Prior abnormal mammogram. Stereotactic guided core biopsy with ALH on February 13, 2020. TECHNIQUE: Needle localization with wire placement and surgical excision of 2 areas of concern in the left breast. FINDINGS: The procedure of needle localization with wire placement and than surgical excision was explained to the patient. Benefits, alternatives, and risks were discussed. An informed consent was then obtained. Group of suspicious calcifications unable to sample are targeted. To these are central in the middle to posterior depth. Anterior biopsy clip of ALH also targeted. Attempted lateral approach initially. The overlying skin was prepped and draped in usual sterile fashion. Lidocaine was used as anesthetic into the skin and subcutaneous tissue up to the level of area of concern. A 9 cm needle was used. It was placed via a lateral approach under mammographic guidance. Subsequent 90 degrees mammogram show the needle to be in satisfactory position relative to the targeted area. At this point, wire was placed and the needle was withdrawn. Calcifications were difficult to visualize in room and wire extended far more medial than desired, slight proximal retraction on trying to track prior. The wire was fixed to patient's skin. Images were marked for surgeon. The patient tolerated the procedure well without any immediate complication. The patient was kept in the radiology department for short stay after the procedure and then taken to surgery. Prior to her surgery case reviewed with surgeon. We discussed placing second wire to get central thicker [place] closer to the group of calcifications and putting second wire tube better localize the clip of biopsy-proven ALH. Patient brought back to department. Second 9 cm needle was used. It was placed lateral approach immediately adjacent to the prior placed wire. At this point this is deployed, third 5 cm needle is placed from cranial approach. Subsequent lateral view shows this in good position and wire is deployed. First specimen shows the targeted calcifications and 2 larger wires are identified in specimen mammogram. Second specimen shows the targeted biopsy clip and shorter wire. The patient was kept in hospital for short stay after the procedure and then discharged home in stable condition. IMPRESSION: Successful, uncomplicated needle localization with wire placement and surgical excision of targeted group of calcifications and biopsy clip in the left breast, full pathology results to follow. Pathology Results: Benign A. LEFT BREAST, NEEDLE LOCALIZATION EXCISION: Fibrocystic changes including cysts, fibrosis, apocrine metaplasia, adenosis, columnar cell change and microcalcifications. Previous biopsy site changes. B. LEFT BREAST, NEEDLE LOCALIZATION EXCISION: Fibrocystic changes including fibrosis, cysts, adenosis, apocrine metaplasia, columnar cell change and rare microcalcifications. Previous biopsy site changes. Recommendation Follow up mammogram of the left breast in 6 months. MICHAEL
[2020-04-13] MEDS: HYDROmorphone 0.5 MG/0.5 ML SYRINGE IVP PRN ×2 (15:15→15:20)
[2020-04-13 15:48] VITALS: RESP 16
[2020-04-13] MEDS ORDERED: ONDANSETRON 4 MG/2 ML VIAL ONE (16:19)
[2020-04-13] MEDS ORDERED: ONDANSETRON 4 MG/2 ML VIAL IVP ONE (16:22)
[2020-04-13 16:52] VITALS: BP 134/89; PULSE 84
[2020-04-13 16:55] LABS: Glucose,Whole Blood 107 mg/dL (75-99)
== END 2020-04-13 17:12 | disposition home or self-care (01) ==
LOC: OR 07:50
PROVIDERS: ATTEND Surgery
DX: N60.12 Diffuse cystic mastopathy of left breast (principal); R92.0 Mammographic microcalcification found on diagnostic imaging of breast; K21.9 Gastro-esophageal reflux disease without esophagitis; K44.9 Diaphragmatic hernia without obstruction or gangrene; Z87.42 Personal history of other diseases of the female genital tract; Z90.49 Acquired absence of other specified parts of digestive tract; Z98.890 Other specified postprocedural states
CPT/HCPCS: 19125; 19126; 81025; 88307; 76098; 19281; 19282; J2250; J1644; J1100; J2405; J0690; J2001; J3010; J1170 ×2; J1885; J2704

== ENCOUNTER → 2020-04-21 | Outpatient (CLI) | payer BC | END | disposition home or self-care (01) | LOC: LABWHC1 10:48 | PROVIDERS: ATTEND Family Medicine | DX: Z03.818 Encounter for observation for suspected exposure to other biological agents ruled out (principal) | CPT/HCPCS: U0003; C9803 ==

== ENCOUNTER → 2020-04-24 | Outpatient (CLI) | payer BC ==
--- NOTE | 2020-04-24 10:06 | MM ---
Reason for exam: additional evaluation requested from prior study. Last mammogram was performed 2 months ago. History: Patient has history of high-risk lesion on a previous biopsy at age 39. Family history of breast cancer in paternal aunt at age 40. Benign MG pre op needle loc LT of the left breast, April 13, 2020. Benign MG pre op needle loc LT of the left breast, April 13, 2020. High risk MG stereo VAD BX addl LT of the left breast, February 13, 2020. High risk MG stereo VAD BX LT of the left breast, February 13, 2020. Took hormonal contraceptives for 10 years. Physical Findings: Nurse did not find any significant physical abnormalities on exam. MG 3D Diag Mammo W/Cad RT CC and MLO view(s) were taken of the right breast. Prior study comparison: February 10, 2020, left breast MG 3d diag mammo w/cad LT. April 09, 2019, left breast MG 3d work up w/cad LT. The breast tissue is heterogeneously dense. This may lower the sensitivity of mammography. Finding: There are typically benign fine diffuse/scattered calcifications in the right breast. No significant changes in finding since February 10, 2020 and April 09, 2019. These results were verbally communicated with the patient and result sheet given to the patient on 04/24/20. ASSESSMENT: Benign, BI-RAD 2 RECOMMENDATION: Routine screening mammogram of both breasts in 6 months.
== END | disposition home or self-care (01) ==
LOC: RADMAMWWP 09:07
PROVIDERS: ATTEND Surgery
DX: R92.8 Other abnormal and inconclusive findings on diagnostic imaging of breast (principal)
CPT/HCPCS: 77061; 77065